=== PATIENT | female | born 1965 | race Caucasian/White ===

== ENCOUNTER → 2017-08-09 | Outpatient (CLI) | payer OTHER ==
[2017-08-09 14:01] LABS: AUTOMATED NEUTROPHIL # 7.6 TH/MM3 (1.8-7.7); BASOPHIL # 0.1 TH/MM3 (0-0.2); BASOPHIL % 0.6 % (0.0-2.0); EOSINOPHIL # 0.1 TH/MM3 (0-0.4); EOSINOPHIL % 0.9 % (0.0-4.0); HEMATOCRIT 40.4 % (35.0-46.0); HEMOGLOBIN 13.7 GM/DL (11.6-15.3); LYMPH % 19.3 % (9.0-44.0); MEAN CELL VOLUME 85.8 FL (80.0-100.0); MEAN CORPUSCULAR HEMOGLOBIN 29.1 PG (27.0-34.0); MONO % 5.1 % (0.0-8.0); MONOCYTE # 0.5 TH/MM3 (0-0.9); NEUT % 74.1 % (16.0-70.0); PLATELET COUNT 290 TH/MM3 (150-450); RED CELL DISTRIBUTION WIDTH 13.9 % (11.6-17.2); WHITE BLOOD COUNT 10.3 TH/MM3 (4.0-11.0)
[2017-08-09 14:20] LABS: BACTERIA, URINE OCC /hpf; BILIRUBIN, URINE NEG (NEG); BLOOD, URINE NEG (NEG); GLUCOSE,URINE NEG (NEG); KETONE, URINE NEG (NEG); MUCUS URINE FEW /lpf (OCC); NITRITE,URINE NEG (NEG); PH, URINE 6.5 (5.0-8.5); SQUAMOUS EPITHELIAL CELL URINE 9 /hpf (0-5); URINE COLOR YELLOW (YELLW/STRAW); URINE LEUKOCYTE ESTERASE NEG (NEG)
[2017-08-09 14:31] LABS: ALBUMIN 3.8 GM/DL (3.4-5.0); AST (GOT) 14 U/L (15-37); BLOOD UREA NITROGEN 9 MG/DL (7-18); CHLORIDE 103 MEQ/L (98-107); CREATININE 0.73 MG/DL (0.50-1.00); GLOMERULAR FILTRATION RATE 84 ML/MIN (>89); GLUCOSE,FASTING 89 MG/DL (74-99); SODIUM (NA) 140 MEQ/L (136-145)
[2017-08-09 14:37] LABS: ALKALINE PHOSPHATASE 75 U/L (45-117); ALT (GPT) 25 U/L (10-53); TOTAL BILIRUBIN ADULT 0.3 MG/DL (0.2-1.0); TOTAL PROTEIN 7.6 GM/DL (6.4-8.2)
--- NOTE | 2017-08-09 15:45 | RADRPT ---
EXAM DATE/TIME: 08/09/2017 13:51 [facility] COMPARISON: No previous studies available for comparison. INDICATIONS : Evaluate for pneumonia, pneumothorax, or communicable disease. Pre op for hysterectomy. MEDICAL HISTORY : None. SURGICAL HISTORY : None. ENCOUNTER: Initial ACUITY: 1 day PAIN SCORE: 0/10 LOCATION: Bilateral chest FINDINGS: PA and lateral views of the chest demonstrate the lungs to be symmetrically aerated without evidence of mass, infiltrate or effusion. The cardiomediastinal contours are unremarkable. Osseous structure s are intact. CONCLUSION: 1. No acute cardiopulmonary disease. Victor Hugo Gray MD on August 09, 2017 at 15:42 Board Certified Radiologist. This report was verified electronically.
--- NOTE | 2017-08-09 15:50 | EKG ---
Date Performed: 08/09/2017 Time Performed: 13:02:21 PTAGE: 52 years EKG: SINUS BRADYCARDIA BORDERLINE ECG NO PREVIOUS TRACING DOCTOR: Carlitos Medina Interpretating Date/Time 08/09/2017 15:49:25
== END ==
LOC: CPRE 12:34
PROVIDERS: ATTEND Obstetrics & Gynecology
DX: Z01.811 Encounter for preprocedural respiratory examination (principal); Z01.812 Encounter for preprocedural laboratory examination; Z01.810 Encounter for preprocedural cardiovascular examination; N93.9 Abnormal uterine and vaginal bleeding, unspecified; N94.6 Dysmenorrhea, unspecified; D25.0 Submucous leiomyoma of uterus
CPT/HCPCS: 36415; 71046; 80053; 81001; 85025; 93005

== ENCOUNTER 2017-08-16 06:05 | Inpatient (IN) | payer OTHER ==
[~2017-08-16] VITALS: Ht 167.6 cm; Wt 95.1 kg
[2017-08-16] MEDS ORDERED: SODIUM CHLORID 0.9% 500 ML IV PRN (06:30)
[2017-08-16] MEDS ORDERED: LACTATED RINGER'S 1000 ML IV PRN (06:30)
[2017-08-16] MEDS ORDERED: CHLORHEXIDINE GLUCONATE 2 % 1 PACK (2 CLOTHS) TOPICAL PRN (06:30)
[2017-08-16] MEDS ORDERED: METOPROLOL TARTRATE 25 MG TAB PO PRN (06:30)
[2017-08-16] MEDS ORDERED: POVIDONE IODINE 5% (ANTISEPSIS KIT) 4 APPLICATIONS EACH NARE PRN (06:30)
[2017-08-16] MEDS ORDERED: HYDROmorphone HCL PF 2 MG/ML VIAL ONE (11:12)
--- NOTE | 2017-08-16 11:17 | MP ---
cc: Mayo Ambrose MD DATE OF OPERATION: 08/16/2017 REASON FOR CONSULTATION: 1. Evaluate for sigmoid colon injury. 2. Pelvic bleeding. POSTOPERATIVE DIAGNOSIS: 1. Evaluate for sigmoid colon injury. 2. Pelvic bleeding. PROCEDURE PERFORMED: 1. Control of pelvic bleeding. 2. Rigid sigmoidoscopy. SURGEON: Mayo Ambrose MD. ANESTHESIA: General endotracheal. COMPLICATIONS: None. INDICATIONS FOR PROCEDURE: Ms. Friend is a very pleasant 52-year-old patient of Dr. Luke Florence who was undergoing a laparoscopic and then converted to open hysterectomy. Dr. Florence was concerned about a possible sigmoid colon injury as well as he was having some difficulty with some pelvic bleeding. He asked me to come in and assist him. The patient was under general anesthesia when I arrived and he had completed his hysterectomy portion of the procedure. DETAILS OF PROCEDURE: When I arrived to the operating room, the patient was in a supine in lithotomy. Dr. Florence demonstrated some pelvic oozing from the pelvic sidewall. He also showed me the sigmoid colon where he had opened the peritoneum on the right lateral surface. The evaluation of the pelvic bleeding showed a continuous ooze from the raw surfaces where he had done his hysterectomy. There was no arterial bleeding. I therefore elected to control the bleeding with simple pressure. A Surgicel procoagulant cloth was placed into the pelvis and then we held pressure for approximately 5 minutes using a laparotomy pad. After 5 minutes passed, we removed the laparotomy pad and there was no bleeding noted whatsoever. Once this was addressed, I evaluated the sigmoid colon. There were no obvious serosal tears or enterotomies made. The majority of Dr. Florence's dissection was on the right lateral portion of the peritoneum and was not on the side of the mesentery or the bowel itself. I advised him that we should perform a rigid sigmoidoscopy to formally evaluate the interior of the colon and test its integrity. He agreed. I then scrubbed out and went down below. A rigid sigmoidoscope was introduced into the anus and it was gently insufflated and by direct visualization, I was able to advance the scope to 20 cm. I did not see any obvious injury. There was no bleeding. There was no fluid from the abdominal cavity coming down. She had a few pieces of dried stool in the rectal vault, but again no bleeding was noted. Dr. Florence could feel my scope and it was beyond the area that he was concerned about. I then slowly withdrew it and pumped up the rectum and sigmoid colon with air and he held it under water and there was no leaking of air. We blew the sigmoid colon up fairly tight and it tolerated this with no problem. The rigid sigmoidoscope was then opened and the air was allowed to evacuate. I slowly withdrew the scope and again there was no evidence of enterotomy, no evidence of bleeding in the colon or rectum. The scope was then withdrawn. I then had Dr. Florence reinspect the bleeding area. The bleeding area was completely dry. There was no bleeding whatsoever. Dr. Florence was then going to complete his surgical procedure. MD MICHELLE Torres/GORDY , 11:00 AM , 11:16 AM
--- NOTE | 2017-08-16 11:52 | RADRPT ---
EXAM DATE/TIME: 08/16/2017 11:19 [facility] COMPARISON: No previous studies available for comparison. INDICATIONS : Evaluate for foreign body, Instrument count. MEDICAL HISTORY : None. SURGICAL HISTORY : None. ENCOUNTER: Initial ACUITY: 1 day PAIN SCORE: Non-responsive. LOCATION: abdomen FINDINGS: Single KUB was performed. There are several surgical clips noted in the right upper quadrant. There i s a radiopaque linear bandlike density overlying the right lower quadrant. This density measures at l east 8.9 cm in length. The bowel gas pattern is within normal limits. The bony structures are grossly intact. CONCLUSION: 1. Radiopaque linear bandlike density overlying the right lower quadrant. 2. Surgical clips in the right upper quadrant. Sal Hamlin MD on August 16, 2017 at 11:48 Board Certified Radiologist. This report was verified electronically.
[2017-08-16] MEDS ORDERED: LACTATED RINGER'S 1000 ML INJ 3,000 ML IV ONE (12:00)
[2017-08-16] MEDS ORDERED: NEOSTIGMINE 5 MG/5 ML SYRINGE IV PUSH ONE (12:00)
[2017-08-16] MEDS ORDERED: GLYCOPYRROLATE 1 MG/5 ML SYRINGE IV PUSH ONE (12:00)
[2017-08-16] MEDS ORDERED: LIDOCAINE HCL 1% PF 5 ML SYRINGE OTHER ONE (12:00)
[2017-08-16] MEDS ORDERED: ROCURONIUM INJ 50 MG/5 ML SYRINGE IV PUSH ONE (12:00)
[2017-08-16] MEDS ORDERED: PROPOFOL 200 MG/20 ML AMP IV ONE (12:00)
[2017-08-16] MEDS ORDERED: ONDANSETRON HCL 4 MG/2 ML VIAL IV ONE (12:00)
[2017-08-16] MEDS ORDERED: ePHEDrine/NS 25 MG/5 ML SYRINGE IV ONE (12:00)
[2017-08-16] MEDS ORDERED: PHENYLEPH/NS 1000 MCG/10 ML SYR IV ONE (12:00)
[2017-08-16] MEDS ORDERED: SODIUM CHLORIDE 0.9% 20 ML VIAL IV ONE (12:00)
[2017-08-16] MEDS ORDERED: DEXAMETHASONE SOD PHOS 4 MG/ML VIAL IV ONE (12:00)
[2017-08-16] MEDS ORDERED: PHENYLEPHRINE HCL 10 MG/ML VIAL IV ONE (12:00)
[2017-08-16] MEDS ORDERED: DO NOT ADM ANY ANTICOAGULANT DRUGS PRN (12:07)
[2017-08-16] MEDS ORDERED: oxyCODONE/ACETAMINOPHEN 10 MG/325 MG TAB PO PRN (12:15)
[2017-08-16] MEDS ORDERED: ZOLPIDEM TARTRATE 5 MG TAB PO PRN (12:15)
[2017-08-16] MEDS ORDERED: SODIUM CHLORIDE 0.9% FLUSH 10 ML FLUSH IV FLUSH PRN (12:15)
[2017-08-16] MEDS ORDERED: LORazepam 0.5 MG TAB PO PRN (12:15)
[2017-08-16] MEDS ORDERED: diphenhydrAMINE HCL 25 MG CAP PO PRN (12:15)
[2017-08-16] MEDS ORDERED: ONDANSETRON HCL 4 MG/2 ML VIAL IV PUSH PRN (12:15)
[2017-08-16] MEDS ORDERED: MIDAZOLAM HCL 2 MG/2 ML VIAL ONE (12:18)
[2017-08-16] MEDS ORDERED: HYDROmorphone HCL PCA 6 MG/30 ML IV ONE (12:30)
[2017-08-16] MEDS ORDERED: NALOXONE HCL 0.4 MG/ML AMP IV PUSH PRN (12:45)
[2017-08-16] MEDS: LACTATED RINGER'S 1000 ML INJ 1,000 ML IV SCH ×2 (13:00→22:00)
[2017-08-16 13:30] VITALS: BP 100/62; PULSE 76; RESP 16; TEMP 97.7; O2SAT 98
[2017-08-16] MEDS: HYDROmorphone HCL PCA 6 MG/30 ML IV SCH ×2 (13:57→17:54)
[2017-08-16] MEDS: PCA - TOTAL MG DILAUDID DELIVERED PER SHIFT SCH ×2 (14:00→22:00)
--- NOTE | 2017-08-16 14:59 | MP ---
cc: Carl Florence MD,Mayo Alexis MD DATE OF OPERATION: 08/16/2017 Corrected Copy: 08/23/17 PREOPERATIVE DIAGNOSES: 1. Abnormal uterine bleeding, status post endometrial ablation. 2. Uterine fibroids. 3. Severe dysmenorrhea. POSTOPERATIVE DIAGNOSES: 1. Abnormal uterine bleeding, status post endometrial ablation. 2. Uterine fibroids. 3. Severe dysmenorrhea. 4. Massive pelvic adhesions posteriorly. 5. Bilateral hydrosalpinx. 6. The left ovary was adhesed to the uterus. PROCEDURE PERFORMED: Laparoscopic exam and open total abdominal hysterectomy, bilateral salpingectomy, left oophorectomy, extensive lysis of adhesions, proctosigmoidoscopy, cystoscopy. ANESTHESIA: General. SURGEONS: 1. Carl Florence MD 2. Mayo Ambrose MD for the colon inspection and the proctosigmoidoscopy. FINDINGS: Examination under anesthesia revealed a normal vagina, a normal cervix without lesions. The uterus was somewhat enlarged 8-10 week size and fixed. The adnexa was negative for masses. The laparoscopic exam revealed massive pelvic adhesions posteriorly. The left ovary was plastered to the uterus. The sigmoid colon was adhesed firmly to the posterior uterus. There were adhesions around all the way down to the cervix. The uterus was enlarged with fibroids. The fallopian tubes were noted to have hydrosalpinx bilaterally. The left ovary was adhesed to the uterus. COMPLICATIONS: Large blood loss due to the massive adhesions. COUNTS: Correct. ESTIMATED BLOOD LOSS: 800 mL FLUIDS: Crystalloid. DISPOSITION: The patient tolerated the procedure well and went to the recovery room in satisfactory condition. PROCEDURE IN DETAIL: The patient was taken to the operating room and identified by name band and verbally, given a general anesthetic, prepped and draped in the usual sterile fashion for laparoscopic vaginal surgery. The timeout was taken and once agreed, an examination under anesthesia was carried out with the above findings. A Hassan catheter was inserted and the cervix was dilated to accept a Hulka clamp. Because of the previous endometrial ablation, we could not put a VCare in. Once this had been accomplished, the small subumbilical incision was made and with a 5 mm trocar, the abdomen was entered under direct vision. Inferolateral to the umbilicus, we placed 5 mm ports and began our dissection. The uterus was frozen posteriorly to the sigmoid colon. We began to take down the round ligaments and created a bladder flap, and then we tried to remove the adhesions posteriorly. It became evident that these adhesions were much too thick and I could not get a good view of them. There was massive adhesions in this area and we decided at this time to proceed with a total abdominal hysterectomy. A Pfannenstiel incision was made, taken down to the fascia, and the fascia was taken off the rectus muscle by blunt and sharp dissection, the peritoneum was entered under direct vision and the incision was extended with care to avoid the urinary bladder. The bowels were packed back and a self-retaining retractor was carefully placed. We began taking down the left side. The left ovary was adhesed to the uterus and that tube was swollen. We took it along the infundibulopelvic ligament after identifying the ureter and took it with 2 Lulu clamps and a free tie of 6-0 Vicryl. On the right side, we took down the fallopian tube along the mesosalpinx. Next, we attempted to take down the broad ligament. There were a lot of adhesions posteriorly extending up around the uterine vessels. We took these adhesions down, this took quite a bit of time, and we had to do this blindly because I could not get a good view of the planes because of the massive adhesions that were thick. We took the colon down as much as possible with scissors, trying to stay on the uterine surface. Once this had been accomplished, there were still some adhesions around the uterine vessels and these were taken down as well. The uterine vessels were then taken with Julian clamps, doubly tied with 0 Vicryl. The cardinal ligament was then taken down, staying very close to the cervix, taking small bites as there was a lot of adhesions around this area and I was concerned about the ureters. So we took small bites and tied them with 0 Vicryl until the vaginal apex was obtained. The vagina was incised sharply and using Gisela scissors, the specimen was removed in toto. The vaginal cuff was then assessed and 2 Monroy sutures were placed laterally and the remainder of the vaginal cuff was closed with 0 Vicryl in an interrupted fashion. At this point, we called in Dr. Mayo Ambrose to perform colon inspection. It looked fine to me, but there was an awful lot of adhesions. He came in and inspected the colon and then we filled the pelvis with water and did a proctosigmoidoscopy. There was no damage to the sigmoid colon and we pushed the air out and proceeded. Small bleeders were coagulated with the Bovie and before closing, we performed a cystoscopy. They only had 2 mL of methylene blue that were inserted and we watched for effluent. There was effluent from both ureteral orifices. At this time, the Hassan was replaced and the rectus muscles were reapproximated with 0 Vicryl in interrupted fashion. The fascia was repaired with 0 PDS in a running fashion. The subcutaneous was repaired with 3-0 Vicryl. Skin was repaired with a 4-0 Monocryl in a subcuticular fashion. The laparoscopic incisions were also repaired with 4-0 Monocryl. The wounds were dressed sterilely. She tolerated the procedure well. She will be going to the recovery room. During this case, there was a large amount of blood loss from the extensive lysis of adhesions and she had an awful lot of oozing. We will be working her up for a bleeding diathesis postoperatively since this may be a problem. R. MD MARISSA Centeno/SHAKIRA , 02:15 PM , 02:57 PM
[2017-08-16 17:55] VITALS: BP 123/66; PULSE 77; RESP 18; TEMP 98; O2SAT 97
[2017-08-16 20:27] VITALS: BP 109/67; PULSE 80; RESP 18; TEMP 97.4
[2017-08-16] MEDS: SODIUM CHLORIDE 0.9% FLUSH 10 ML FLUSH IV FLUSH SCH (21:00)
[2017-08-16 23:57] VITALS: BP 122/64; PULSE 93; RESP 17; TEMP 98.7
[2017-08-17] MEDS: HYDROmorphone HCL PCA 6 MG/30 ML IV SCH ×2 (04:20→14:47)
[2017-08-17] MEDS: PCA - TOTAL MG DILAUDID DELIVERED PER SHIFT SCH ×2 (04:21→14:00)
[2017-08-17] MEDS: LACTATED RINGER'S 1000 ML INJ 1,000 ML IV SCH ×2 (04:21→14:00)
[2017-08-17 04:25] VITALS: BP 118/59; PULSE 100; RESP 18; TEMP 98.6
[2017-08-17 05:52] LABS: BASOPHIL % 0.1 % (0.0-2.0); EOSINOPHIL % 0.1 % (0.0-4.0); HEMATOCRIT 28.5 % (35.0-46.0); HEMOGLOBIN 9.4 GM/DL (11.6-15.3); LYMPH % 7.9 % (9.0-44.0); LYMPHOCYTE # 1.1 TH/MM3 (1.0-4.8); MEAN CELL VOLUME 86.1 FL (80.0-100.0); MEAN CORPUSCULAR HEMOGLOBIN 28.5 PG (27.0-34.0); MEAN CORPUSCULAR HGB CONC 33.1 % (32.0-36.0); MEAN PLATELET VOLUME 7.9 FL (7.0-11.0); MONO % 8.7 % (0.0-8.0); MONOCYTE # 1.3 TH/MM3 (0-0.9); NEUT % 83.2 % (16.0-70.0); PLATELET COUNT 241 TH/MM3 (150-450); RED BLOOD COUNT 3.31 MIL/MM3 (4.00-5.30); WHITE BLOOD COUNT 14.5 TH/MM3 (4.0-11.0)
[2017-08-17 06:16] LABS: CREATININE 0.56 MG/DL (0.50-1.00)
[2017-08-17 08:30] VITALS: BP 119/64; PULSE 105; RESP 16; TEMP 98.5; O2SAT 96
--- NOTE | 2017-08-17 09:24 | HHI.PR ---
Subjective Remarks Doing well, pain is well controlled, will advance diet later Objective Vital Signs Vital Signs Date Time Temp Pulse Resp B/P (MAP) Pulse Ox O2 Delivery O2 Flow Rate FiO2 08/17/17 04:25 98.6 100 18 118/59 (78) 08/17/17 04:21 18 08/17/17 04:20 18 08/16/17 23:57 98.7 93 17 122/64 (83) 08/16/17 22:30 21 08/16/17 22:00 18 08/16/17 20:27 97.4 80 18 109/67 (81) 08/16/17 17:55 98.0 77 18 123/66 (85) 97 08/16/17 17:54 18 08/16/17 14:00 16 08/16/17 13:57 15 08/16/17 13:30 97.7 76 16 100/62 (75) 98 08/16/17 13:00 78 16 100/54 (69) 98 Nasal Cannula 2 08/16/17 12:45 97.6 72 15 98/55 (69) 98 Nasal Cannula 2 08/16/17 12:30 70 15 97/56 (70) 97 Nasal Cannula 2 08/16/17 12:15 68 14 94/50 (65) 100 Simple Mask 8 08/16/17 12:07 97.5 74 13 106/54 (71) 98 Simple Mask 8 I/O 08/16/17 08/16/17 08/16/17 08/17/17 08/17/17 08/17/17 07:00 15:00 23:00 07:00 15:00 23:00 Intake Total 3000 ml Output Total 1500 ml 350 ml 650 ml Balance 1500 ml -350 ml -650 ml Other 3000 ml Output Urine Total 700 ml 350 ml 650 ml Estimated Blood Loss 800 ml Result Diagram: 08/17/17 0501 08/17/17 0501 Objective Remarks Chest is clear, regular rate and rhythm. Abdomen is soft and non-distended. dressing is clean and dry. Ext no CCE. A/P Assessment and Plan Post Op Day 1 Doing well. discussed in detail surgical procedure with pt and spouse labs and vs stable we will slowly advance diet we will transition from iv to oral pain medications later pt to ambulate today, incentive spirometer encouraged routine half-way in 1-2 days return to office in two weeks. Carl Florence MD Aug 17, 2017 09:24
[2017-08-17] MEDS: DOCUSATE SODIUM 100 MG CAP PO PRN ×2 (11:21→21:14)
[2017-08-17] MEDS: IRON SUCROSE INJ 200 MG in SODIUM CHLORIDE 0.9% INJ 100 ML IV SCH (11:28)
[2017-08-17 12:30] VITALS: TEMP 99.5
[2017-08-17 15:07] VITALS: BP 132/69; PULSE 98; RESP 16; TEMP 99.1; O2SAT 98
[2017-08-17 20:00] VITALS: BP 145/69; PULSE 103; RESP 18; TEMP 99.9; O2SAT 99
[2017-08-17] MEDS: SODIUM CHLORIDE 0.9% FLUSH 10 ML FLUSH IV FLUSH SCH (21:00)
[2017-08-17] MEDS: IBUPROFEN 600 MG TAB PO PRN (21:15)
[2017-08-18] VITALS (8 sets, daily range): BP systolic 127–146; BP diastolic 50–71; PULSE 58–93; RESP 18–20; TEMP 98.1–99.5; O2SAT 95–98
[2017-08-18] MEDS: PCA - TOTAL MG DILAUDID DELIVERED PER SHIFT SCH (05:39)
[2017-08-18] MEDS: HYDROmorphone HCL PCA 6 MG/30 ML IV SCH (05:41)
[2017-08-18 05:54] LABS: AUTOMATED NEUTROPHIL # 7.7 TH/MM3 (1.8-7.7); BASOPHIL % 0.3 % (0.0-2.0); EOSINOPHIL % 0.4 % (0.0-4.0); HEMOGLOBIN 8.1 GM/DL (11.6-15.3); LYMPH % 15.9 % (9.0-44.0); LYMPHOCYTE # 1.6 TH/MM3 (1.0-4.8); MEAN CELL VOLUME 87.2 FL (80.0-100.0); MEAN CORPUSCULAR HEMOGLOBIN 29.3 PG (27.0-34.0); MEAN CORPUSCULAR HGB CONC 33.6 % (32.0-36.0); MEAN PLATELET VOLUME 8.1 FL (7.0-11.0); MONO % 8.7 % (0.0-8.0); MONOCYTE # 0.9 TH/MM3 (0-0.9); NEUT % 74.7 % (16.0-70.0); PLATELET COUNT 166 TH/MM3 (150-450); RED BLOOD COUNT 2.75 MIL/MM3 (4.00-5.30); RED CELL DISTRIBUTION WIDTH 14.1 % (11.6-17.2); WHITE BLOOD COUNT 10.3 TH/MM3 (4.0-11.0)
--- NOTE | 2017-08-18 09:11 | HHI.PR ---
Subjective Remarks Doing well, pain is well controlled, passing gas Objective Vital Signs Vital Signs Date Time Temp Pulse Resp B/P (MAP) Pulse Ox O2 Delivery O2 Flow Rate FiO2 08/18/17 07:45 98.6 88 18 137/64 (88) 96 08/18/17 05:41 18 08/18/17 05:39 18 08/18/17 04:00 98.3 93 18 146/67 (93) 98 08/18/17 00:00 99.5 83 18 144/65 (91) 97 08/17/17 20:00 99.9 103 18 145/69 (94) 99 08/17/17 15:07 99.1 98 16 132/69 (90) 98 08/17/17 14:47 16 08/17/17 14:00 16 08/17/17 12:30 99.5 I/O 08/17/17 08/17/17 08/17/17 08/18/17 08/18/17 08/18/17 07:00 15:00 23:00 07:00 15:00 23:00 Intake Total 1548 ml Output Total 650 ml 850 ml 2300 ml Balance -650 ml -850 ml -752 ml Intake Oral 48 ml IV Total 1500 ml Output Urine Total 650 ml 850 ml 2300 ml # Voids 3 # Bowel Movements 0 Result Diagram: 08/18/17 0501 08/17/17 0501 Objective Remarks Chest is clear, regular rate and rhythm. Abdomen is soft and non-distended. dressing is clean and dry. Ext no CCE. A/P Assessment and Plan Post Op Day 2 Doing well. labs H/H 8.1/24.0 pt will get next dose of Venofer, vital signs stable pt ambulating with assistance in room, denies dizziness, SOB or chest pain pt passing gas, having some nausea with eating advise to advance diet with more bland food we will transition from iv to oral pain medications today pt to shower today, incentive spirometer encouraged routine custodial in 2 days return to office in two weeks. Dorinda Gonzalez Aug 18, 2017 09:11
[2017-08-18] MEDS: DOCUSATE SODIUM 100 MG CAP PO PRN (09:21)
[2017-08-18] MEDS: IRON SUCROSE INJ 200 MG in SODIUM CHLORIDE 0.9% INJ 100 ML IV SCH (09:22)
[2017-08-18] MEDS: IBUPROFEN 600 MG TAB PO PRN ×3 (09:23→21:44)
[2017-08-18] MEDS: oxyCODONE/ACETAMINOPHEN 5 MG/325 MG TAB PO PRN (14:05)
[2017-08-19] MEDS: IBUPROFEN 600 MG TAB PO PRN ×2 (04:32→12:26)
[2017-08-19] MEDS: oxyCODONE/ACETAMINOPHEN 5 MG/325 MG TAB PO PRN (04:32)
[2017-08-19 04:35] VITALS: BP 128/76; PULSE 85; RESP 16; TEMP 98.3
[2017-08-19 08:00] VITALS: BP 129/69; PULSE 88; RESP 18; TEMP 98.2; O2SAT 96
[2017-08-19] MEDS: IRON SUCROSE INJ 200 MG in SODIUM CHLORIDE 0.9% INJ 100 ML IV SCH (09:07)
--- NOTE | 2017-08-19 11:35 | HHI.PR ---
Subjective Remarks Doing well, pain is well controlled, eating well. Had a good BM now. Objective Vital Signs Vital Signs Date Time Temp Pulse Resp B/P (MAP) Pulse Ox O2 Delivery O2 Flow Rate FiO2 08/19/17 08:00 98.2 88 18 129/69 (89) 96 08/19/17 05:30 16 08/19/17 05:30 16 08/19/17 04:35 98.3 85 16 128/76 (93) 08/18/17 23:48 98.4 83 18 144/71 (95) 08/18/17 20:27 98.4 89 18 132/64 (86) 08/18/17 16:00 98.1 85 20 135/70 (91) 97 08/18/17 15:00 99.2 58 18 127/50 (75) 98 08/18/17 11:30 98.9 91 18 136/69 (91) 95 I/O 08/18/17 08/18/17 08/18/17 08/19/17 08/19/17 08/19/17 07:00 15:00 23:00 07:00 15:00 23:00 Intake Total 1548 ml Output Total 2300 ml Balance -752 ml Intake Oral 48 ml IV Total 1500 ml Output Urine Total 2300 ml # Voids 3 # Bowel Movements 0 Result Diagram: 08/18/17 0501 08/17/17 0501 Objective Remarks Chest is clear, regular rate and rhythm. Abdomen is soft and non-distended. dressing is clean and dry. Ext no CCE. A/P Assessment and Plan Post Op Day #3 Doing well May go home today. RTO in one week Carl Florence MD Aug 19, 2017 11:35
[2017-08-19 12:24] VITALS: BP 136/78; PULSE 88; RESP 20; TEMP 98.6; O2SAT 97
[2017-08-19 13:43] LABS: AUTOMATED NEUTROPHIL # 6.7 TH/MM3 (1.8-7.7); BASOPHIL % 0.4 % (0.0-2.0); EOSINOPHIL # 0.1 TH/MM3 (0-0.4); EOSINOPHIL % 1.6 % (0.0-4.0); HEMATOCRIT 26.2 % (35.0-46.0); HEMOGLOBIN 8.8 GM/DL (11.6-15.3); LYMPH % 17.3 % (9.0-44.0); LYMPHOCYTE # 1.6 TH/MM3 (1.0-4.8); MEAN CELL VOLUME 87.2 FL (80.0-100.0); MEAN CORPUSCULAR HEMOGLOBIN 29.2 PG (27.0-34.0); MEAN CORPUSCULAR HGB CONC 33.5 % (32.0-36.0); MEAN PLATELET VOLUME 7.7 FL (7.0-11.0); MONO % 6.6 % (0.0-8.0); MONOCYTE # 0.6 TH/MM3 (0-0.9); NEUT % 74.1 % (16.0-70.0); PLATELET COUNT 213 TH/MM3 (150-450); RED BLOOD COUNT 3.01 MIL/MM3 (4.00-5.30); RED CELL DISTRIBUTION WIDTH 14.4 % (11.6-17.2)
== END 2017-08-19 14:56 | disposition home or self-care (01) | DRG 743 ==
LOC: HSDC 06:05 → HSDI 12:09 → H1EA 13:10
PROVIDERS: ADMIT Obstetrics & Gynecology; ATTEND Obstetrics & Gynecology
PROC: 0UN90ZZ Release Uterus, Open Approach (ICD-10-PCS; 2017-08-16)
PROC: 0JNC0ZZ Release Pelvic Region Subcutaneous Tissue and Fascia, Open Approach (ICD-10-PCS; 2017-08-16)
PROC: 0W3J0ZZ Control Bleeding in Pelvic Cavity, Open Approach (ICD-10-PCS; 2017-08-16)
PROC: 0UT70ZZ Resection of Bilateral Fallopian Tubes, Open Approach (ICD-10-PCS; 2017-08-16)
PROC: 0WJJ4ZZ Inspection of Pelvic Cavity, Percutaneous Endoscopic Approach (ICD-10-PCS; 2017-08-16)
PROC: 0TJB8ZZ Inspection of Bladder, Via Natural or Artificial Opening Endoscopic (ICD-10-PCS; 2017-08-16)
PROC: 0DJD8ZZ Inspection of Lower Intestinal Tract, Via Natural or Artificial Opening Endoscopic (ICD-10-PCS; 2017-08-16)
PROC: 0UT90ZZ Resection of Uterus, Open Approach (ICD-10-PCS; principal; 2017-08-16 07:57)
PROC: 0UT10ZZ Resection of Left Ovary, Open Approach (ICD-10-PCS; 2017-08-16 07:57)
DX: D25.9 Leiomyoma of uterus, unspecified (principal); N73.6 Female pelvic peritoneal adhesions (postinfective); N70.11 Chronic salpingitis; N93.9 Abnormal uterine and vaginal bleeding, unspecified; N94.6 Dysmenorrhea, unspecified; Z53.31 Laparoscopic surgical procedure converted to open procedure
CPT/HCPCS: 74018; 82565; 84132; 85025; 86850; 86900; 86901; 86920; 88305; 88307; 94150; J1100; J1170; J1756; J2250; J2370; J2405; J2710; J3010; J7120